=== PATIENT | male | born 1975 | race African-American/Black ===

== ENCOUNTER → 2019-02-09 | Day surgery (SDC) | payer OTHER ==
[~2019-02-09] MED LIST: FEXO180T81 PO; IBUP200T44 PO; LIDO700A21 TP; LIDOCAINE 1%/EPI 1:100,000 20 ML VIAL. INJ ONE; RIZA10TA PO
[2019-02-09 09:51] VITALS: BP 132/77
--- NOTE | 2019-02-09 10:14 | PDOC4 ---
Operative Note Operative Note Date: 02/09/2019 Preoperative diagnosis right arm mass Postoperative diagnosis: Same Procedure: Excision of right arm mass Surgeon: Lavelle Specimen: Right arm mass 4 x 4 centimeters Dictation: Patient is a 43-year-old male is complained of enlarging mass in his right arm just about the elbow area. The procedure of excision was explained to the patient in detail risk benefits were also discussed including bleeding infection alternatives to this procedure also discussed with the patient is seemed to understand and gave both verbal and written consent had the procedure performed. Patient was taken to the miners room placed in supine position the area was prepped and draped usual sterile fashion using ChloraPrep and area over the mass was injected with percent lidocaine with epinephrine incision was made over the mass with 15 blade scalpel the mass was excised sharply exposing a lipomatous appearing mass 4 x 4 centimeters. Wound was then closed in a single layer for septic and a Monocryl Mastisol Steri-Strips and island dressing were applied. Patient tolerated procedure well was discharged home in stable condition. Estimate blood loss was 5 mL EULALIO HAYES MD Feb 09, 2019 10:14
--- NOTE | 2019-02-09 10:16 | DISCH ---
DISCHARGE INSTRUCTIONS Condition on Discharge Condition on Discharge: Stable Activity After Discharge Activity Instructions for Disc: No restrictions Diet after Discharge Diet after Discharge: Regular Wound Incision Care Other wound/incision instructi: May shower in 24 hours Contacting the after DC Call your doctor for: If your condition worsens Follow-Up Follow up with: Dr. Hayes in 2 weeks EULALIO HAYES MD Feb 09, 2019 10:16
--- NOTE | 2019-02-12 15:07 | PATHOLOGY ---
[facility] Accession Number: [id number] . 01 Material submitted: . arm - RIGHT ARM MASS. Modifiers: right . 01 Clinical history: . Right arm mass. . 02 Diagnosis: Fibroadipose tissue, right arm mass: - Lipoma with focal features of angiolipoma. ([facility] 02/12/2019) [facility] 02/12/2019 1215 Local . 02 Comment: There is no evidence of malignancy. ([facility] 02/12/2019) . 02 Electronically signed: . Frankie Gaitan MD, Pathologist NPI- [id number] . 01 Gross description: . Received in formalin labeled "Stanislaw Boyce, right arm mass" is an encapsulated yellow-payan lobulated soft tissue mass measuring 3.6 x 3.4 x 1.5 cm. The external surface is inked black. The specimen is sectioned to reveal a yellow-payan homogenous cut surface without hemorrhage or necrosis. [employer] Specialist sections are submitted in A1-A2. ([facility] [place]; 02/11/2019) [facility] 02/11/2019 1118 Local . 02 Pathologist provided ICD-10: D17.21 . 02 CPT . 497757 Specimen Comment: A courtesy copy of this report has been sent to [phone] Specimen Comment: [id number] Specimen Comment: Report sent to / DR NELSON Performed at: 01 [facility] [address], [place] [id number] MD Niko Palomares MD Phone: [phone] Performed at: 02 [facility] [address], [place] [id number] MD Frankie Gaitan MD Phone: [phone]
== END ==
LOC: SURG 09:41
PROVIDERS: ATTEND Surgery
DX: R22.31 Localized swelling, mass and lump, right upper limb (principal); D17.21 Benign lipomatous neoplasm of skin and subcutaneous tissue of right arm; G43.909 Migraine, unspecified, not intractable, without status migrainosus; E66.9 Obesity, unspecified; Z68.32 Body mass index [BMI] 32.0-32.9, adult; Z98.52 Vasectomy status; Z72.89 Other problems related to lifestyle
CPT/HCPCS: 24071; 88304; J3490